=== PATIENT | male | born 1975 | race Caucasian/White ===

== ENCOUNTER 2025-01-16 09:51 | Inpatient (IN) | payer OTHER ==
[~2025-01-16] VITALS: Ht 175.3 cm; Wt 90.0 kg
[2025-01-16 10:51] LABS: BASOPHILS % (AUTO) 0.6 % (0.0-2.0); EOSINOPHILS % (AUTO) 2.8 % (1.0-6.0); HEMATOCRIT 41.8 % (41-53); HEMOGLOBIN 14.2 g/dL (13.5-17.5); LYMPHOCYTES # (AUTO) 1.6 K/uL (1.0-4.8); LYMPHOCYTES % (AUTO) 21.2 % (22.0-44.0); MEAN CORPUSCULAR HEMOGLOBIN 30.9 pg (26.0-34.0); MEAN CORPUSCULAR VOLUME 91 fL (80-100); MONOCYTES # (AUTO) 0.7 K/uL (0.1-1.0); MONOCYTES % (AUTO) 9.8 % (2.0-9.0); NEUTROPHILS # (AUTO) 4.9 K/uL (1.8-7.7); NEUTROPHILS % (AUTO) 65.6 % (40.0-70.0); PLATELET COUNT (AUTO) 192 K/uL (150-450); RED CELL DISTRIBUTION WIDTH 12.5 % (11.5-14.5); WHITE BLOOD COUNT (AUTO) 7.4 K/uL (4.5-11.0)
[2025-01-16 11:00] LABS: ERYTHROCYTE SEDIMENTATION RATE 29 MM/HR (0-15)
[2025-01-16 11:01] LABS: ANION GAP 6 mmol/L (8-16); CALCIUM, TOTAL 8.7 mg/dL (8.8-10.5); CARBON DIOXIDE 28 mmol/L (22-29); CHLORIDE 103 mmol/L (98-107); CREATININE 0.82 mg/dL (0.60-1.30); GLOMERULAR FILTR. RATE CALC > 60 mL/min (>60); GLUCOSE,RANDOM 91 mg/dL (70-110); POTASSIUM 3.6 mmol/L (3.5-5.1); SODIUM SERUM 137 mmol/L (136-145); UREA NITROGEN, BLOOD 14 mg/dL (7-18)
[2025-01-16 11:04] LABS: ALANINE AMINOTRANSFERASE 23 U/L (12-78); ALBUMIN 3.3 g/dL (3.4-5.0); ASPARTATE AMINOTRANSFERASE 17 U/L (15-37); C-REACTIVE PROTEIN QUANT 4.37 mg/dL (0.00-0.30)
[2025-01-16 11:22] LABS: ALKALINE PHOSPHATASE 111 U/L (46-116); BILIRUBIN,TOTAL 0.5 mg/dL (0.1-1.0); TOTAL PROTEIN, SERUM 7.1 g/dL (6.4-8.2)
[2025-01-16] MEDS ORDERED: OxyCODONE HCL/ACETAMINOPHEN 5-325 MG TABLET PO PRN (12:00)
[2025-01-16] MEDS ORDERED: MAGNESIUM HYDROXIDE SUSPENSION 30 ML UDCUP PO PRN (12:00)
[2025-01-16] MEDS ORDERED: ACETAMINOPHEN 325 MG TABLET PO PRN (12:00)
[2025-01-16 12:34] LABS: APPEARANCE,URINE CLEAR (CLEAR); BILIRUBIN,URINE NEGATIVE (NEGATIVE); COLOR,URINE LIGHT YELLOW (YELLOW); GLUCOSE, URINE (UA) NEGATIVE (NEGATIVE); KETONES,URINE NEGATIVE (NEGATIVE); LEUKOCYTE ESTERASE ,URINE NEGATIVE (NEGATIVE); NITRATE,URINE NEGATIVE (NEGATIVE); OCCULT BLOOD,URINE NEGATIVE (NEGATIVE); PROTEIN,URINE NEGATIVE (NEGATIVE); SPECIFIC GRAVITIY, URINE 1.016 (1.003-1.030); UROBILINOGEN,URINE <=1.0 mg/dL (<=1.0)
[2025-01-16] MEDS: HEPARIN SODIUM,PORCINE 5,000 UNITS/ML VIAL SQ SCH (17:23)
[2025-01-16 19:00] VITALS: BP 116/53; PULSE 66; RESP 16; TEMP 97.9; O2SAT 95
[2025-01-16 20:15] VITALS: BP 122/78; PULSE 64; RESP 18; TEMP 97.5; O2SAT 94
[2025-01-16] MEDS: DOCUSATE SODIUM 100 MG CAPSULE PO SCH (20:44)
[2025-01-16] MEDS: BENZONATATE 100 MG CAPSULE PO ONE (22:06)
[2025-01-16] MEDS: ZOLPIDEM TARTRATE 5 MG TABLET PO PRN (23:46)
[2025-01-17 05:26] VITALS: BP 100/58; PULSE 60; RESP 17; TEMP 98.6; O2SAT 98
[2025-01-17] MEDS: FAMOTIDINE 20 MG TABLET PO SCH (09:02)
[2025-01-17 09:08] VITALS: BP 99/61; PULSE 67; RESP 19; TEMP 98.2; O2SAT 98
[2025-01-17] MEDS ORDERED: ACET-2247 PO (09:58)
[2025-01-17] MEDS ORDERED: MAGN-169 PO (09:58)
== END 2025-01-17 16:01 | DRG 605 ==
LOC: EMS 09:56 → EDH 11:55 → 6N 18:30
PROVIDERS: ADMIT Internal Medicine; ATTEND Internal Medicine
DX: S80.911A Unspecified superficial injury of right knee, initial encounter (principal); X58.XXXA Exposure to other specified factors, initial encounter; Y93.89 Activity, other specified; Y92.89 Other specified places as the place of occurrence of the external cause; Y99.8 Other external cause status; Z90.49 Acquired absence of other specified parts of digestive tract
CPT/HCPCS: 73700; 74176; 80053; 81003; 85025; 85651; 86140; 87040; 87070; 87205; 99285; J1644